=== PATIENT | male | born 1990 | race Caucasian/White ===

== ENCOUNTER 2017-10-21 17:43 | Emergency (ER) | payer BC, OTHER, SELFPAY ==
[~2017-10-21 17:43] MED LIST: ISOVUE-370 76%-LOCM 1 ML ONE
[2017-10-21] MEDS ORDERED: Ondansetron HCl/PF 4 MG/2 ML Vial ONE (18:11)
[2017-10-21 18:13] LABS: INR-International Normal Ratio 1.1
[2017-10-21 18:34] LABS: ALT (SGPT) 15 U/L (8-55); AST (SGOT) 23 U/L (5-34); Albumin 4.6 g/dL (3.5-5.0); Alcohol Less than 10 mg/dL (Less than 10); Alkaline Phosphatase 66 U/L (40-150); Anion Gap 15 mmol/L (10-20); BUN (Urea Nitrogen) 17 mg/dL (8.9-20.6); Bilirubin, Total 0.7 mg/dL (0.2-1.2); Calc. Creatinine Clearance 0 mL/min (70-130); Calcium 9.6 mg/dL (7.8-10.44); Carbon Dioxide 20 mmol/L (22-29); Chloride 107 mmol/L (98-107); Estimated GFR-MDRD 82; Globulin 2.8 g/dL (2.4-3.5); Glucose 83 mg/dL (70-105); Lipase 18 U/L (8-78); Potassium 3.5 mmol/L (3.5-5.1); Protein, Total 7.4 g/dL (6.0-8.3); Sodium 138 mmol/L (136-145)
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
[2017-10-21] MEDS ORDERED: HYDROcodone/Acetaminophen 10/325 mg Tablet ONE (20:08)
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
[2017-10-21 20:22] LABS: Bilirubin Negative (Negative); Blood, Urine Negative (Negative); Clarity CLEAR (Clear); Glucose, Urine (Dipstick) Negative (Negative); Leukocyte Negative (Negative); Nitrite Negative (Negative); Protein, Urine (Dipstick) Negative (Neg-Trace); Specific Gravity, Urine 1.038 (1.002-1.036); Urobilinogen 0.2 mg/dL (0.2-1.0)
== END 2017-10-21 21:00 | disposition home or self-care (01) ==
LOC: ERS 17:43
DX: S29.011A Strain of muscle and tendon of front wall of thorax, initial encounter (principal); S40.012A Contusion of left shoulder, initial encounter; Z79.899 Other long term (current) drug therapy; V49.9XXA Car occupant (driver) (passenger) injured in unspecified traffic accident, initial encounter
CPT/HCPCS: 36415; 70450; 71045; 71260; 72125; 74177; 80053; 80307; 81003; 83690; 85610; 86850; 86900; 86901; 96360; 96361; 96374; G0390; J2405